=== PATIENT | male | born 1940 | race Caucasian/White ===

== ENCOUNTER → 2020-08-31 08:32 | Outpatient (CLI) | payer MEDICARE, OTHER, SELFPAY ==
--- NOTE | 2020-08-31 | DI.MRI.S_ITS ---
PROCEDURE: MR CERVICAL SPINE WO CON INDICATIONS: Hereditary and idiopathic neuropathy, unspecified TECHNIQUE: Noncontrast sagittal T1 spin echo and T2 fast spin echo, sagittal STIR, foraminal oblique sagittal T2 fast spin echo, and axial gradient echo or T2 fast spin echo through the cervical spine. COMPARISON: None. FINDINGS: Image quality: This examination is limited by involuntary motion artifact. Alignment and Curvature: There is normal bony alignment. Bone Marrow: Marrow demonstrates normal overall signal. Spinal Cord: Visualized spinal cord has normal size and signal. No cerebellar tonsillar herniation. Paraspinous Soft Tissues: No paravertebral masses. Prevertebral soft tissues are normal in thickness. C2-C3: Mild loss of disc height is seen. Loss of disc signal is seen. Mild to moderate disc osteophyte complex is seen. Moderate facet hypertrophy is seen, left worse than right. There is moderate to severe bilateral neural foraminal narrowing seen. Mild to moderate central canal narrowing is seen. C3-C4: At least moderate loss of disc height and disc signal can be seen. At least moderate disc osteophyte complex is seen, which is eccentric to the right. At least moderate facet hypertrophy is seen. There is moderate to severe bilateral neural foraminal narrowing seen, left worse than right. Moderate central canal narrowing is seen. There is associated mass effect upon the ventral spinal cord. C4-C5: Moderate loss of disc height is seen. Loss of disc signal is seen. Moderate generalized disc osteophyte complex is seen. Moderate facet joint hypertrophy is seen. There is moderate to severe bilateral neural foraminal narrowing seen, right worse than left. Moderate central canal narrowing is seen. There is associated mass effect upon the ventral spinal cord. C5-C6: Mild loss of disc height is seen. Loss of disc signal is seen. Moderate generalized disc osteophyte complex is seen, with a central disc osteophyte protrusion. Mild to moderate facet hypertrophy is seen. There is at least moderate bilateral neural foraminal narrowing seen. Moderate central canal narrowing is seen. There is associated mass effect upon the ventral spinal cord. C6-C7: The disc height is well-preserved. Loss of disc signal is seen at this level. Moderate disc osteophyte complex is seen, with a central/right disc osteophyte protrusion, as on series 4, image 31. Moderate facet joint hypertrophy is seen. There is moderate right-sided and [id number] left-sided neural foraminal narrowing seen. Moderate central canal narrowing is seen, with associated mass effect upon the ventral spinal cord. C7-T1: The disc height is well-preserved. Loss of disc signal is seen at this level. A mild degree of generalized disc osteophyte complex is seen. No significant neural foraminal or central canal narrowing can be seen. IMPRESSION: Multiple levels of relatively prominent cervical spine degenerative change can be seen. Dictated by: Filippo Ortega M.D. on 08/31/2020 at 8:41 Approved by: Filippo Ortega M.D. on 08/31/2020 at 8:44
== END ==
PROVIDERS: PCP Internal Medicine; Referring Provider Internal Medicine; Visit Provider Internal Medicine
DX: G60.9 Hereditary and idiopathic neuropathy, unspecified (principal); M54.2 Cervicalgia
CPT/HCPCS: 72141

== ENCOUNTER → 2021-06-09 12:33 | Outpatient (CLI) | payer MEDICARE, OTHER, SELFPAY ==
--- NOTE | 2021-06-09 | DI.MRI.S_ITS ---
PROCEDURE: MR CERVICAL SPINE WO CON INDICATIONS: Cervicalgia TECHNIQUE: Noncontrast sagittal T1 spin echo and T2 fast spin echo, sagittal STIR, foraminal oblique sagittal T2 fast spin echo, and axial gradient echo or T2 fast spin echo through the cervical spine. COMPARISON: [facility], MR, MR CERVICAL SPINE WO CON, 08/31/2020, 8:46. FINDINGS: Image quality: Excellent. Alignment and Curvature: There is trace anterolisthesis of C2 on C3, trace retrolisthesis of C4 on C5, each measuring 1-2 mm. Bone Marrow: Marrow demonstrates normal overall signal. Minimal reactive endplate changes are present at C3-4. Spinal Cord: Visualized spinal cord has normal size and signal. No cerebellar tonsillar herniation. Paraspinous Soft Tissues: No paravertebral masses. Prevertebral soft tissues are normal in thickness. Discs: Moderate desiccation is present throughout the cervical spine. C2-C3: Mild disc bulge with slight effacement of the anterior thecal sac as well as [id number] spinal stenosis, unchanged. There is moderate to severe bilateral foraminal narrowing with marked uncovertebral hypertrophy, stable. C3-C4: Mild disc bulge with moderate spinal stenosis and slight indentation of the anterior thecal sac and cord. Moderate to severe bilateral foraminal narrowing, unchanged with uncovertebral hypertrophy. C4-C5: Mild disc bulge with moderate spinal stenosis with indentation of the anterior thecal sac. There is moderate to severe bilateral foraminal narrowing, right greater than left with uncovertebral hypertrophy, unchanged. C5-C6: Mild disc bulge with posterior central protrusion. Moderate spinal stenosis with indentation of the anterior thecal sac and cord. Moderate bilateral foraminal narrowing with uncovertebral hypertrophy, unchanged. C6-C7: Mild disc bulge with posterior right paracentral protrusion. Moderate spinal stenosis with indentation of the anterior thecal sac is present. Moderate right and [id number] left foraminal narrowing is present with uncovertebral hypertrophy, unchanged. C7-T1: Mild disc bulge without spinal stenosis or foraminal narrowing. No interval change. IMPRESSION: Multilevel degenerative changes, stable compared to prior exam. 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 Dictated by: Roula Salguero M.D. on 06/11/2021 at 10:22 Approved by: Roula Salguero M.D. on 06/11/2021 at 10:32
== END ==
PROVIDERS: PCP Internal Medicine; Referring Provider Physical Medicine & Rehabilitation Pain Medicine; Visit Provider Physical Medicine & Rehabilitation Pain Medicine
DX: M50.21 Other cervical disc displacement, high cervical region (principal); M48.02 Spinal stenosis, cervical region
CPT/HCPCS: 72141